=== PATIENT | female | born 1975 ===

== ENCOUNTER 2017-11-10 16:31 | Emergency (ER) | payer MEDICAID, OTHER ==
[2017-11-10 16:42] VITALS: BP 124/67; PULSE 90; RESP 18; TEMP 98.3; O2SAT 98
[2017-11-10 17:47] LABS: BASO % 0.4 % (0.0-2.0); EOS # 0.1 K/uL (0.0-0.7); EOS % 0.6 % (0.0-4.0); HEMOGLOBIN 10.5 g/dL (12.0-16.0); LYMPH # 1.8 K/uL (1.0-4.3); LYMPH % 20.4 % (20.0-40.0); MEAN CELL VOLUME 88.5 fl (81.0-99.0); MEAN CORPUSCULAR HEMOGLOBIN 29.5 pg (27.0-31.0); MEAN CORPUSCULAR HGB CONC 33.3 g/dL (33.0-37.0); MONO # 0.8 K/uL (0.0-0.8); MONO % 9.8 % (0.0-10.0); NEUT # 5.9 K/uL (1.8-7.0); NEUT % 68.8 % (50.0-75.0); NRBC % 0.1 % (0.0-0.0); RBC 3.56 Mil/uL (3.80-5.20); RED CELL DISTRIBUTION WIDTH 13.2 % (11.5-14.5); WHITE BLOOD COUNT 8.6 K/uL (4.8-10.8)
[2017-11-10 17:49] LABS: VENOUS BLOOD GAS BASE EXCESS -4.8 mmol/L (0.0-2.0); VENOUS BLOOD GAS PCO2 44 mmHg (40-60); VENOUS BLOOD GAS PO2 30 mm/Hg (30-55)
[2017-11-10 17:51] LABS: SQUAMOUS EPITHIAL 2 /hpf (0-5); URINE BACTERIA OCC (<OCC); URINE BILIRUBIN NEGATIVE (NEGATIVE); URINE BLOOD MODERATE (NEGATIVE); URINE CLARITY SLIGHTY-CLOUDY (Clear); URINE COLOR YELLOW (YELLOW); URINE GLUCOSE (UA) NEG (Normal); URINE LEUKOCYTE ESTERASE NEG Leu/uL (Negative); URINE PROTEIN NEGATIVE (NEGATIVE)
[2017-11-10 18:09] LABS: ALB/GLOB RATIO 1.2 (1.0-2.1); ALBUMIN 3.9 g/dL (3.5-5.0); ALT/SGPT 103 U/L (9-52); AST/SGOT 51 U/L (14-36); BLOOD UREA NITROGEN 7 mg/dl (7-17); CALCIUM 9.6 mg/dL (8.4-10.2); GFR AFRICAN-AMERICAN > 60; GFR NON-AFRICAN AMERICAN > 60
--- NOTE | 2017-11-10 18:15 | ED PDOC ---
HPI: Abdomen Time Seen by Provider: 11/10/17 16:44 Chief Complaint (Nursing): Abdominal Pain Chief Complaint (Provider): Abdominal Pain History Per: Patient History/Exam Limitations: no limitations Onset/Duration Of Symptoms: Days Current Symptoms Are (Timing): Still Present Location Of Pain/Discomfort: RLQ, LLQ Quality Of Discomfort: Unable To Describe Additional Complaint(s): 42 y/o female with a predicted 7 week presents to the ED for evaluation of vaginal spotting and left lower quadrant pain, onset one week ago. Patient states approximately three weeks ago, she was seen by a doctor and told she was . Ultrasound at the time could not determine if she had an intrauterine . Patient was told to come to the ER if she had bleeding or abdominal pain to rule out ectopic . Patient describes vaginal bleeding as dark red spotting. Patient states she has not seen passages of clots or tissue. Denies taking medications for symptom relief. PMD: None Provided LNMP: 08/28/2017 Abnormal Vaginal Bleeding: Yes Last Menstral Period: 08/28/2017 Past Medical History Reviewed: Historical Data, Nursing Documentation, Vital Signs Vital Signs: Last Vital Signs Temp 98.3 F 11/10/17 16:38 Pulse 90 11/10/17 16:38 Resp 18 11/10/17 16:38 BP 124/67 11/10/17 16:38 Pulse Ox 98 11/10/17 21:50 - Medical History PMH: No Chronic Diseases - Surgical History Surgical History: (x1 (23 yrs ago)) - Family History Family History: States: Unknown Family Hx - Allergies Allergies/Adverse Reactions: Allergies Allergy/AdvReac Type Severity Reaction Status Date / Time No Known Allergies Allergy Verified 11/10/17 17:08 Review of Systems ROS Statement: Except As Marked, All Systems Reviewed And Found Negative Gastrointestinal: Positive for: Abdominal Pain Genitourinary Female: Positive for: Vaginal Bleeding Physical Exam - Reviewed Nursing Documentation Reviewed: Yes Vital Signs Reviewed: Yes - Physical Exam Appears: Positive for: No Acute Distress, Uncomfortable (mildly) Head Exam: Positive for: ATRAUMATIC, NORMOCEPHALIC Skin: Positive for: Normal Color, Warm, Dry Eye Exam: Positive for: Normal appearance, EOMI, PERRL Neck: Positive for: Normal, Painless ROM Cardiovascular/Chest: Positive for: Regular Rate, Rhythm. Negative for: Murmur Respiratory: Positive for: Normal Breath Sounds. Negative for: Respiratory Distress Gastrointestinal/Abdominal: Positive for: Normal Exam, Tenderness (Left lower quadrant ), Guarding Back: Positive for: Normal Inspection. Negative for: L CVA Tenderness, R CVA Tenderness Extremity: Positive for: Normal ROM. Negative for: Deformity Neurologic/Psych: Positive for: Alert, Oriented. Negative for: Motor/Sensory Deficits - Laboratory Results Result Diagrams: 11/10/17 17:41 11/10/17 17:53 - ECG O2 Sat by Pulse Oximetry: 98 (RA) Pulse Ox Interpretation: Normal Medical Decision Making Medical Decision Making: Time: 174 Impression: Ectopic vs Threatened Plan: -- Workup for ectopic vs threatened -- Labs sent including COAGS, Type and Screen and Beta-HCG, Quantitative -- Uterine US ordered to determine Intrauterine vs ectopic -- Type and Screen -- VBG -- EKG -- Beta-HCG, Quantitative -- CMP -- CBC with differentials -- PTT -- Prothrombin Time -- Urinalysis -- US OB Preg 1st Tri & OB Transvag -- Possibility of ectopic vs threatened discussed with patient who understands and wishes to proceed with treatment. -- Patient declining pain medications at this time. -- Will re-evaluation patient. 18:58 Pt just received sonogram with images pending and official read pending. Labs pending (RN contacted lab due to a delay in results which had caused a delay in US being performed). PT to be handed off to Dr. Villalobos for final disposition. Scribe Attestation: Documented by Jailene Krishnan acting as a scribe for Dr. Summer Adhikari MD. Provider Scribe Attestation: All medical record entries made by the Scribe were at my direction and personally dictated by me. I have reviewed the chart and agree that the record accurately reflects my personal performance of the history, physical exam, medical decision making, and the department course for this patient. I have also personally directed, reviewed, and agree with the discharge instructions and disposition. Disposition - Clinical Impression Clinical Impression: Molar - Disposition Referrals: [facility] [Outside] [facility] [Outside] [facility] [Outside] Disposition: Transfer of Care Disposition Time: 19:01 (pending labs and US rule out ectopic .) Condition: GOOD Additional Instructions: Follow up with your fish receiver within 2 -3 days. Take motrin for pain as needed. Instructions: Gestational Trophoblastic Disease Forms: [facility] (Belarusian), [facility] (Anguillan)
--- NOTE | 2017-11-10 19:21 | ED PDOC ---
- Laboratory Results Result Diagrams: 11/10/17 17:41 11/10/17 17:53 - ECG O2 Sat by Pulse Oximetry: 98 (RA) Pulse Ox Interpretation: Normal Medical Decision Making Medical Decision Making: Time: 1899 -- Patient endorsed to me by Dr. Adhikari, pending labs and US to rule out ectopic . Time: 1957 US RESULTS FINDINGS: Gestation: No intrauterine gestational sac is visualized. Uterus/cervix: The uterus measures 15.1 x 7.7 x 9.3 cm. There is a large amount of heterogeneous material in the endometrial cavity. Doppler imaging demonstrates minimal vascularity within the endometrial contents. The cervix is closed. Ovaries: The left ovary is only visualized on the transabdominal images. It is normal in size and appearance and demonstrates normal vascular flow on Doppler imaging. The right ovary is not identified. No adnexal mass is visualized. Free fluid: No pelvic free fluid is visualized. IMPRESSION: No intrauterine gestational sac is visualized. There is a large amount of heterogeneous material in the endometrial cavity with minimal internal vascularity. Differential diagnosis includes gestational trophoblastic disease (e.g., molar ) versus spontaneous with retained products of conception and hemorrhagic debris/clot. Thank you for allowing us to participate in the care of your patient. Dictated and Authenticated by: Linda Kyle MD 11/10/2017 7:58 PM Eastern Time ([place] & [place]) 2100 Discussed the case and findings of US with Dr Stockton who recommends discharge with close outpatient follow up for molar /TBD for D and C. Patient will be referred to the clinic. Motrin for pain as needed. Scribe Attestation: Documented by Jailene Krishnan acting as a scribe for Dr. Kinjal Villalobos MD. Provider Scribe Attestation: All medical record entries made by the Scribe were at my direction and personally dictated by me. I have reviewed the chart and agree that the record accurately reflects my personal performance of the history, physical exam, medical decision making, and the department course for this patient. I have also personally directed, reviewed, and agree with the discharge instructions and disposition. Disposition Discussed With Dr.: Summer Stockton Doctor Will See Patient In The: Office Counseled Patient/Family Regarding: Studies Performed, Diagnosis, Need For Followup - Clinical Impression Clinical Impression: Molar - POA Present On Arrival: None - Disposition Referrals: [facility] [Outside] [facility] [place] [Outside] [facility] [Outside] Disposition: Routine/Home Disposition Time: 21:30 Condition: GOOD Additional Instructions: Follow up with your slate splitter within 2 -3 days. Take motrin for pain as needed. Instructions: Gestational Trophoblastic Disease Forms: [facility] (Taiwanese), [facility] (Marshallese)
[2017-11-10 20:48] LABS: PROTHROMBIN TIME 11.3 Seconds (9.8-13.1)
[2017-11-10 20:51] LABS: PARTIAL THROMBOPLASTIN TIME 37.9 Seconds (25.6-37.1)
--- NOTE | 2017-11-11 08:47 | CARD ---
APPROVED REPORT Date of service: 11/10/2017 EKG Measurement Heart [id number] <Conclusion> Normal sinus rhythm Normal ECG
--- NOTE | 2017-11-11 11:32 | US ---
Date of service: 11/10/2017 PROCEDURE: TRANSABDOMINAL AND TRANSVAGINAL OBSTETRIC ULTRASOUND HISTORY: pt 7 wks , no confirmed IUP, LLQ pain ; last menstrual period is reported 08/28/2017 suggesting an estimated gestational age of 10 weeks 4 days. COMPARISON: None available. TECHNIQUE: Ultrasonography of was performed using transabdominal and transvaginal techniques in longitudinal and transverse projections. Color Doppler technique was also utilized. FINDINGS: No intrauterine gestational sac is identified. Instead, uterus is anteverted, enlarged to 15.1 x 7.7 x 9.3 cm with markedly heterogeneous changes identified within the endometrial cavity which exhibits minimal vascularity on color ultrasound. Cervix appears closed, measuring 3.8 cm. Given the heterogeneous soft tissue changes within the endometrial cavity, consider possible gestational trophoblastic disease although spontaneous and retained products of conception including hemorrhagic elements are possibility. The right ovary is not identified. There are no suspicious adnexal masses identified bilaterally with the left ovary appearing unremarkable, measuring 3.6 x 3.6 x 1.9 cm. IMPRESSION: Abnormal examination with no gestational sac appreciable within the endometrial cavity. Enlarged uterus is appreciated with extensive heterogeneous soft tissue identified within the endometrial cavity suspicious for gestational trophoblastic disease although demise is a possibility with retained products of conception including hemorrhagic elements. Further clinical correlation is recommended. Concordant preliminary report from [facility], 11/10/2017.
== END 2017-11-10 21:55 | disposition home or self-care (01) ==
LOC: H.ER 16:31
DX: O02.0 Blighted ovum and nonhydatidiform mole (principal); Z3A.01 Less than 8 weeks gestation of pregnancy